=== PATIENT | male | born 2005 | race Caucasian/White ===

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

== ENCOUNTER 2024-10-25 13:42 | Outpatient (REF) | payer OTHER, SELFPAY ==
[2024-10-25 15:36] LABS: MANUAL DIFF FLAG NO
[2024-10-25 15:53] LABS: Basophils Percent Auto 0.9 % (0-2); Eosinophils Absolute Auto 0.2 X10*3/uL (0.0-0.4); Eosinophils Percent Auto 4.7 % (0-4); Hematocrit 43.3 % (42.0-52.0); Hemoglobin 14.7 g/dl (14.0-18.0); Imm Gran Abs Auto 0.01 X10*3/uL (0.00-0.03); Imm Gran Pct Auto 0.2 % (0.0-0.4); Lymphocytes Absolute Auto 1.6 X10*3/uL (1.2-4.9); Lymphocytes Percent Auto 36.7 % (20-40); Mean Corpuscular HGB Conc 33.9 g/dl (31.0-36.0); Mean Corpuscular Hemoglobin 28.8 pg (27.0-33.0); Mean Corpuscular Volume 84.9 fL (80.0-98.0); Mean Platelet Volume 10.3 fL (9.4-12.4); Monocytes Absolute Auto 0.4 X10*3/uL (0.1-1.2); Monocytes Percent Auto 8.1 % (2-11); Neutrophils Absolute Auto 2.2 x10*3/uL (2.0-8.3); Neutrophils Percent Auto 49.4 % (45-73); Platelet Count 210 X10*3/uL (160-400); White Blood Count 4.4 X10*3/uL (4.8-10.8)
[2024-10-25 16:49] LABS: Folate 14.3 ng/mL (> or = 4.0); Vitamin B12 522 pg/mL (200-900)
[2024-10-25 17:13] LABS: Alanine Aminotransferase 22 U/L (0-40); Albumin Level 4.8 g/dL (3.5-5.0); Alkaline Phosphatase 72 U/L (39-117); Anion Gap 12 (12-20); Aspartate Amino Transferase 22 U/L (5-37); Bilirubin Total 0.6 mg/dL (0.0-1.0); Blood Urea Nitrogen 13 mg/dL (9-16); Calcium 9.6 mg/dL (8.4-10.2); Carbon Dioxide 29 mmol/L (22-29); Chloride 106 mmol/L (96-108); Estimated Glomerular Filt Rate > 60; Glucose Random 107 mg/dL (60-115); Potassium 3.8 mmol/L (3.3-5.1); Sodium 143 mmol/L (135-145); Total Protein 7.3 g/dL (6.5-8.0)
[2024-10-25 17:34] LABS: Free T4 (Free Thyroxine) 0.99 ng/dL (0.71-1.85); TSH reflex Free T4 0.95 uIU/mL (0.32-4.0); Vitamin D 25-OH Total 24.2 ng/mL (>30)
== END 2024-10-25 13:43 | disposition home or self-care (01) ==
LOC: HO.LAB 13:42
PROVIDERS: PCP Pediatrics
DX: Z76.89 Persons encountering health services in other specified circumstances (principal); G47.9 Sleep disorder, unspecified; J45.20 Mild intermittent asthma, uncomplicated; R43.0 Anosmia; L81.9 Disorder of pigmentation, unspecified; H61.20 Impacted cerumen, unspecified ear; L65.9 Nonscarring hair loss, unspecified; Z00.00 Encounter for general adult medical examination without abnormal findings
CPT/HCPCS: 36415; 69210; 80053; 82306; 82607; 82746; 84439; 84443; 85025; 86850; 86900; 86901; 96127; 99202

== ENCOUNTER 2024-10-25 13:42 | Outpatient (AMB) | payer OTHER, SELFPAY ==
--- NOTE | 2024-10-25 13:52 | A.OFFPC_ITS ---
Vital Signs 10/25/24 13:55 Height 5 ft 8.11 in Weight 110 lb 2 oz BMI 16.7 BP 110/62 Blood Pressure Location Lt brachial Position Sitting Pulse 90 Pulse Source Pulse Oximeter Temp 97.1 F Temp Source Temporal Artery Scan Pulse Oximetry (%) 97 Oxygen Delivery Method Room Air Intake Visit Reasons: Establish care/CINDI Abby Borja Intake Note: Patient is a new patient here to establish care for Sleep Difficulties, Asthma, Seasonal allergic. Transferring care from [facility] (Abby Borja). Medical records have been requested and have received. Automation Analyst Required: No Administrative Staff Supervisor: Present Accompanied by: Mother Allergies Seasonal Allergies Allergy (Intermediate, Verified 10/25/24 14:01) Nose Bleed Medication List - Last Reconciled 10/25/24 by Shi Honeycutt PA-C albuterol sulfate 90 mcg/actuation 2 puffs inhalation Q4-6H PRN fluticasone propionate 50 mcg/actuation (Children's Flonase Allergy Relief) 1 spray intranasal DAILY 30 days inhalational spacing device (Aerochamber MV spacer) As directed multivitamin 1 tab PO DAILY naproxen 375 mg PO BID 7 days Tobacco use date assessed: 10/25/24 Dental Screening Dental Screen Date: 10/25/24 Did you have a dental visit in the last 12 months?: Yes Did you have a dental problem in the last 6 months where you did not have access to dental care?: No Was dental information given to patient?: Patient has dentist HPI Establish care/CINDI Abby Borja HPI Details 18-year-old male with past medical histo ry of asthma and sleep difficulties last seen 10/2022 coming in for transfer of care from pediatrics. Presenting with persistent ear wax impaction and related symptoms. History of ear wax buildup causing ear clogging and loss of smell with only strong odors like cinnamon detectable since childhood. The anosmia remains unexplained despite previous evaluations including a CT scan. Sleep disturbances since childhood; current sleep habits involve inconsistent sleep patterns with a preference to sleep during the morning. Occasionally experiences red and itchy legs while standing,FHx of erythromelalgia. Asthma manifests during physical exertion; managed with as-needed use of an inhaler. Ongoing concern about hair loss, for which he has not sought specialized attention. [facility] Medical History Anosmia Surgical History History of tonsillectomy H/O adenoidectomy Family History Mother No problems noted. Father No problems noted. Other Chronic mental illness Social History Household Members: Family Both parents involved: Yes Housing: Apartment Housing Other:: rents apartment Patient Tobacco Use Status: Never used Tobacco e-Cigarette/Vaping Use: Never Used Second Hand Smoke Exposure: No service: No Current occupational status: student Cognitive needs: No Hearing needs: No Vision needs: No Questionnaire PHQ-9 Over the last 2 weeks, how often have you been bothered by any of the following problems? 1. Little interest or pleasure in doing things: several days 2. Feeling down, depressed, or hopeless: not at all 3. Trouble falling or staying asleep, or sleeping too much: several days 4. Feeling tired or having little energy: several days 5. Poor appetite or overeating: several days 6. Feeling bad about yourself - or that you are a failure or have let yourself o r your family down: not at all 7. Trouble concentrating on things, such as reading the newspaper or watching television: not at all 8. Moving or speaking so slowly that other people could have noticed. Or the opposite - being so fidgety or restless that you have been moving around a lot more than usual: not at all 9. Thoughts that you would be better off or of hurting yourself in some way: not at all Total score: 4 Depression Screening Interpretation: Negative Depression Screening Done: Yes Source: Developed by Drs. Carlos Julian, Christina Logan, Jose Alejandro Holm and colleagues, with an educational gabriel from [employer]. Thrive Questionnaire Date Thrive assessed: 10/25/24 I am a: Patient What is your living situation today?: I have a steady place to live Within the past 12 months, did the food you bought not last and you didn't have the money to get more?: Never true Within the past 12 months, did you worry whether your food would run out before you got money to buy more?: Never true Do you have trouble paying for medicines?: No Do you have trouble getting transportation to medical appointments?: No Do you have trouble paying your heating and electricity bill?: No Do you have trouble taking care of your child, family member or friend?: No Do you have trouble with day-to-day activities such as bathing, preparing meals, shopping, managing finances, etc.?: No Are you currently unemployed and looking for a job?: Yes Are you interested in more education?: No Please select the resources that you would like help with: Job search/training Currently or been in a relationship where the following occur: No concerns reported THRIVE Score: 0 AUDIT C Alcohol Use Questionnaire (AUDIT-C) 1. How often do you have a drink containing alcohol?: Never Total Score: 0 DONA-7 AMB Questionnaire DONA-7 Date DONA - 7 assessed: 10/25/24 Feeling nervous, anxious, or on edge: 0 = Not at all Not being able to stop or control worryin = Not at all Worrying too much about different things: 0 = Not at all Trouble relaxin = Several days Being so restless that it is hard to sit still: 1 = Several days Becoming easily annoyed or irritable: 1 = Several days Feeling afraid as if something awful might happen: 0 = Not at all Total DONA-7 score (0-4 normal; 5-9 mild; 10-14 moderate; 15-21 severe): 3 Source: Developed by Drs. Carlos Julian, Christina Logan, Jose Alejandro Holm and colleagues, with an educational gabriel from [employer]. DONA-7 Assessment Billing DONA-7 Assessment Tool: DONA-7 Assessment 37799 Review of Systems Const Denies body aches, Denies chills, Denies fever(s), Denies headache(s) and Denies poor appetite Eyes Reports no additional complaints ENT Denies dysphagia, Denies dizziness, Denies headache(s) and Denies odynophagia Card Denies chest pain, Denies syncope, Denies edema, Denies irregular heart rhythm, Denies lightheadedness and Denies dyspnea Resp Denies cough and Denies dyspnea GI Denies abdominal pain, Denies constipation, Denies dysphagia, Denies diarrhea, Denies nausea, Denies odynophagia and Denies vomiting Reports no additional complaints Musc Reports no additional complaints and Denies abnormal gait Skin/Breast Reports system reviewed and no additional complaints, except as documented Neuro Denies abnormal gait, Denies dizziness, Denies syncope and Denies headache(s) Psych Reports no additional complaints Physical exam (Primary Care) Vital Signs: Last Vital Signs Temp 97.1 F 10/25/24 13:55 Pulse 90 10/25/24 13:55 BP 110/62 10/25/24 13:55 Pulse Ox 97 10/25/24 13:55 Oxygen Delivery Method Room Air 10/25/24 13:55 BMI result Body Mass Index 16.7 Tobacco/Smoking Status: Tobacco use Status Tobacco use date assessed 10/25/24 10/25/24 14:01 Patient Tobacco Use Status Never used Tobacco 10/25/24 14:01 e-Cigarette/Vaping Use Never Used 10/25/24 14:01 PHQ-9: PHQ-9 Score PHQ-9: Total score 4 10/25/24 15:47 Depression Screening Interpretation: Negative Thrive Assessment: Date of Thrive Assessment Date Thrive assessed 10/25/24 10/25/24 14:01 Currently or been in a relationship where the following occur: No concerns reported Const General: cooperative, healthy appearing, comfortable and no acute distress Orientation/consciousness: patient oriented x3 HENMT Head: Yes normocephalic Ears: hearing grossly normal bilaterally, TM's normal bilaterally and Abnormal EAC present excessive cerumen bilateral General nose exam: Normal external nose present Eyes General: appearance normal, both eyes and all related structures Conjunctivae: conjunctivae normal Neck Neck: Yes full ROM and Yes no lymphadenopathy Resp Effort & Inspection: normal respiratory effort Auscultation: clear to auscultation bilaterally, no crackles, no rales, no rhonchi and no wheezes Cardio Rate: regular rate Rhythm: regular rhythm Skin General skin exam: no rashes or lesions noted Neuro General: patient oriented x3 Gait exam (Neuro): Normal gait present Extrem Other: No discoloration, swelling or edema bilateral lower extremities. General: Yes normal to inspection, Yes full ROM and No edema Psych Affect: normal affect Attitude: cooperative Insight: Good insight present (Psych) Judgement: Good judgement present (Psych) Office Procedures Cerumen Removal From which ear canal was the cerumen removed: bilateral Removal: cerumen loop/spoon Notes: patient tolerated procedure well and no complications [id number] Wax Removal by Spoon/Curette Coding Level of Care Code New Pt Level 4 (16971) Diagnoses Sleep difficulties G47.9 Mild intermittent asthma J45.20 Anosmia R43.0 Discoloration of skin of lower leg L81.9 Cerumen impaction H61.20 Hair loss L65.9 CPT Codes Office Procedure - CPT: 80313-Zdj Wax Removal by Spoon/Curette ([id number]) Additional Codes DONA-7 Assessment Billing - DONA-7 Assessment Tool: DONA-7 Assessment 80407 ([id number]) Assessment & Plan Assessment & Plan (1) Sleep difficulties: Code(s): G47.9 - Sleep disorder, unspecified Category: Medical Plan: Patient declining medical management at this time. I did recommend patient use magnesium or melatonin [id number] for insomnia. (2) Mild intermittent asthma: Code(s): J45.20 - Mild intermittent asthma, uncomplicated Category: Medical Plan: Asthma currently controlled on present medications. Continue on albuterol as needed. Avoid triggers such as allergies. (3) Anosmia: Code(s): R43.0 - Anosmia Category: Medical Plan: Patient has had extensive workup with ENT with no cause found. Advised patient to continue to follow with ENT. (4) Discoloration of skin of lower leg: Code(s): L81.9 - Disorder of pigmentation, unspecified Category: Medical Plan: Patient complaining of discoloration of lower legs on exam there is no evidence of discoloration, swelling or rash. Recommend patient take pictures next time this occurs (5) Cerumen impaction: Code(s): H61.20 - Impacted cerumen, unspecified ear Category: Medical Plan: Patient having bilateral cerumen impaction successfully removed with lighted curette. Mild wax does remain advised patient to use Debrox drops [id number] and follow up at next visit. (6) Hair loss: Code(s): L65.9 - Nonscarring hair loss, unspecified Category: Medical Plan: Referral was placed to Dermatology today. No visualized bald spots. Plan To address the persistent ear wax impaction, I will prescribe wldw-cii-xelcoie ear drops with an oil component to soften wax, recommending application prior to the upcoming follow-up. Anosmia remains without a detected cause through previous testing; continued monitoring is suggested, with a potential future referral to a specialist. For sleep disturbances, we discussed maintaining regular sleep hygiene with the possible use of magnesium or melatonin to regulate sleep patterns if necessary. With symptoms of depression, further intervention will be considered if his condition affects daily functioning, though psychological support could be beneficial. The unexplained red coloration and itching in the legs have led to a planned blood work and suggesting photographic evidence capture for differential diagnosis of erythromelalgia versus other systemic issues. Asthma management will continue with as-needed inhaler usage prior to exertion, and we encourage reinstating Flonase for allergy management concurrent with his symptoms. Further dermatological assessment is indicated for hair loss; subsequent blood analysis and referrals will be reviewed during his next appointment. This note was constructed using voice recognition software. While every effort has been made to ensure accuracy and president and ceo, still areas may have been included sometimes these areas may affect the content or meeting of the given symptoms. Total time spent caring for the patient today was 30 minutes. This includes time spent before the visit reviewing the chart, time spent during the visit, and time spent after the visit and documentation. Patient was informed and verbally consented to the use of an ambient scribe for clinic note documentation during this visit. Orders: Orders TSH reflex Free T4 Today G47.9 - Sleep disorder, unspecified, Z00.00 - Encounter for general adult medical examination without abnormal findings Free T4 (Free Thyroxine) Today G47.9 - Sleep disorder, unspecified, Z00.00 - Encounter for general adult medical examination without abnormal findings Vitamin B12 and Folate Today G47.9 - Sleep disorder, unspecified, Z13.21 - Encounter for screening for nutritional disorder Vitamin D 25-OH Total Today G47.9 - Sleep disorder, unspecified, Z00.00 - Encounter for general adult medical examination without abnormal findings Complete Blood Count Auto Diff Today R43.0 - Anosmia, Z00.00 - Encounter for general adult medical examination without abnormal findings Comprehensive Met. Panel Today R43.0 - Anosmia, Z00.00 - Encounter for general adult medical examination without abnormal findings Type and Screen Today H61.20 - Impacted cerumen, unspecified ear, Z00.00 - Encounter for general adult medical examination without abnormal findings Referrals Dermatology Referral L65.9 - Nonscarring hair loss, unspecified Medications: New fluticasone propionate 50 mcg/actuation (Flonase Allergy Relief) administer into each nostril 1 spray intranasal DAILY 16 grams 0RF carbamide peroxide 6.5% (Debrox) 5 drps otic (ears) DAILY 4 days 15 mL 0RF Refilled multivitamin 1 tab PO DAILY 90 tabs 3RF albuterol sulfate 90 mcg/actuation 2 puffs inhalation Q4-6H PRN 1 ea 0RF shortness of breath or wheezing Discontinued fluticasone propionate 50 mcg/actuation (Children's Flonase Allergy Relief) administer into each nostril Discontinued Reason: Patient no longer taking 1 spray intranasal DAILY 30 days 15.8 mL 2RF J30.9 - Allergic rhinitis, unspecified naproxen after 7 days of taking bid can continue q12 hrs PRN Discontinued Reason: Patient no longer taking 375 mg PO BID 7 days 30 tabs 0RF
--- OUTSIDE RECORDS SUMMARY | 2024-10-25 13:52 | XMS_ITS | Clinical Summary ---
Author Organization Repair Report Address [address] [facility] [address] [place] [address] Care Team Providers Care Environmental Health Aide Name Role Phone Unavailable Primary Care Provider Unavailabl e Allergies No known active allergies Medications Sodium Fluoride 1.1 % creamIndication s:Dental caries [place] with a pea size amount of toothpaste morning and bedtime. Floss between teeth. Do not rinse. Spit out excess. 56 g 10 3 Active Additional Information Patient not taking.Reported on 10/04/2024 Multiple Vitamin (Daily-Shayna Multivitamin) tablet Take 1 tablet by mouth in the morning. 3 Active Multiple Vitamin (Daily-Shayna) tablet Take 1 tablet by mouth in the morning. 2 Active albuterol 108 (90 Base) MCG/ACT inhaler INHALE 2 PUFF INHALED EVERY 4 TO 6 HOURS NEEDED FOR SHORTNESS OF BREATH OR WHEEZING 2 Active Active Problems Problem Noted Date Diagnosed Date Inadequate occlusion of dental buddhism 03/21 Incipient enamel dental caries 12/25/2023 Tooth, impacted 12/25/2023 Deviated septum 05/24/2022 Abnormal smell 05/18/2022 Nasal congestion 05/18/2022 Insomnia 01/22/2013 Periodic limb movement disorder 01/22/2013 Restless legs 01/22/2013 Asthma 06/22/2012 Encounters Date Type Department Care Team Description 10/04/2024 3:00 PM EDT Office Visit [facility] [address] [place] [address] Johnson Cleary DDS 09/18/2024 2:00 PM EDT Office Visit [facility] [address] [place] [address] Adithya Stahl DMD Tooth, impacted (Primary Dx) 08/20/2024 10:30 AM EDT Office Visit [facility] [address] [place] [address] Johnson Cleary DDS from Last 3 Months Social History Tobacco Use Types Packs/Day Years Used Date Smoking Tobacco: Never Passive Smoke Exposure: Never Smokeless Tobacco: Never Tobacco Cessation:Counseling Given: No Alcohol Use Standard Drinks/Week Comments Never 0 (1 standard drink = 0.6 oz pur e alcohol) Sex and Gender Information Value Date Recorded Sex Assigned at Male 03/28/2022 10:20 AM EDT Legal Sex Male 10:20 AM EDT Gender Identity Male 03/28/2022 10:20 AM EDT Sexual Orientation Straight 03/28/2022 10 :20 AM EDT Last Filed Vital Signs Vital Sign Reading Time Taken Comments Blood Pressure 104/60 10/04/2024 3:06 PM EDT Pulse 96 10/04/2024 3:06 PM EDT Temperature - - Respiratory Rate - - Oxygen Saturation - - Inhaled Oxygen Concentration - - Weight 52 kg (114 lb 9.6 oz) 01/23/2023 11:00 AM EDT Height 172.7 cm (5' 8 ) 01/23/2023 11:00 AM EDT Body Mass Index 17.42 01/23/2023 11:00 AM EDT Body Mass Index Percentile 1.42% 01/23/2023 11: 00 AM EDT Growth Chart: CDC (Boys, 2-2 0 Years) Plan of Treatment Upcoming Encounters Date Type Department Care Team (Late st Contact Info) Description 12/18/2024 9:30 AM EDT Office Visit [facility] [address] [place] [address] Adithya Stahl, DMD [address] [place] [address] 01/01/2025 1:00 PM EDT Office Visit [facility] [address] [place] [address] Aris Rinaldiaris [address] [place] [address] Health Maintenance Due Date Last Done Comments Chlamydia and Gonorrhea Screening 2004 Depression Screening 2004 HIV Screening 2004 SDOH Screening 2004 Disability Screening 2004 Alcohol/Substance Use Screening 2016 Family Planning (PISQ) 12/01/2019 Meningococcal B Vaccine (1 of 2 - Standard) 2020 Hepatitis C Screening 2022 Pneumococcal Vaccine: Pediatrics (0 to 5 Years) and At-Risk Patients (6 to 49) Years) (1 of 2 - PCV) 12/01/2023 03/15/2006, 06/15/2005, 04/11/2005, Additional history exists COVID-19 Vaccine (1 - 2023- season) 2024 Influenza Vaccine (#1) 2024 6, 03/03/2015, 03/14/2014, Additional history exists Dental Oral Exam 06/27/2024 12/25/2023, 07/25/2022 Fluoride Varnish 12/29/2024 07/01/2024, , 01/23/2023, Additional history exists Dental Prophylaxis 12/30/2024 07/01/2024, 0 12/25/2023, 01/23/2023, Additional history exists Dental X-Ray: Bitewings 08/21/2025 08/21/19, 12/25/2023, 07/25/2022 Tobacco Screening 10/04/2025 10/04/2024 DTaP/Tdap/Td Vaccines (7 - Td or Tdap) 07/05/2026 07/05/2016, 12/10/2008, 03/15/2006, Additional history exists Dental X-Ray: Full Mouth 08/22/2027 08/20/2024 Zoster Vaccines (1 of 2) 2054 RSV Patients and Patients Aged 60 years or older (1 - 1-dose 75+ series) 12/01/2079 Hepatitis B Vaccines Completed 06/15/2005, 04/11/2005, 02/07/2005 HIB Vaccines Completed 03/15/2006, 03/30, 02/07/2005 Hepatitis A Vaccines Completed 06/19/2006, 12/14/19 IPV Vaccines Completed 12/10/2008, 05/29, 04/11/2005, Additional history exists MMR Vaccines Completed 12/10/2008, 12/13/2005 Varicella Vaccines Completed 01/12/2009, 12/13/2005 HPV Vaccines Completed 08/28/2018, 0409/2015, 07/02/2015 Meningococcal Vaccine Completed 03/31/2022, 017 RSV under 20 months Aged Out No longe r eligible based on patient's age to complete this topic Rotavirus Vaccines Aged Out No longer eligible based on patient's age to complete this topic Procedures Procedure Name Priority Date/Time Associated Diagnosis Comments CASE PRESENTATION, DETAILED AND EXTENSIVE TREATMENT PLANNING Routine 10/04/2024 3:00 PM EDT 3 DO RESIN-BASED COMPOSITE - 2 SURF, POSTERIOR Routine 10/04/2024 3:00 PM EDT CONSULTATION - DIAGNOSTIC SERVICE PROVIDED BY DENTIST OR PHYSICIAN OTHER THAN REQUESTING DENTIST OR PHYSICIAN Routine 09/18/2024 2:00 PM EDT BITEWINGS - 2 RADIOGRAPHIC IMAGES Routine 08/20/2024 10:30 AM EDT PANORAMIC RADIOGRAPHIC IMAGE Routine 08/20/2024 10:30 AM EDT LIMITED ORAL EVALUATION - PROBLEM FOCUSED Routine 08/20/2024 10:30 AM EDT CASE PRESENTATION, DETAILED AND EXTENSIVE TREATMENT PLANNING Routine 08/20/2024 10:30 AM EDT 2 MO RESIN-BASED COMPOSITE - 2 SURF, POSTERIOR Routine 08/20/2024 10:30 AM EDT PROPHYLAXIS - ADULT Routine 07/01/2024 2 :00 PM EST Dental plaque TOPICAL APPLICATION OF FLUORIDE VARNISH Routine 07/01/2024 2:00 PM EST Dental plaque PERIODIC ORAL EVALUATION - ESTABLISHED PATIENT Routine 12/25/2023 1:00 PM EDT from Last 3 Months or Most Recently Relevant to Health Maintenance Insurance [facility] MEDICAID STAND CHILD
[2024-10-25 13:55] VITALS: BP 110/62; PULSE 90; TEMP 36.2; O2SAT 97; BMI 16.7
== END 2024-10-25 14:38 | disposition home or self-care (01) ==
DX: G47.9 Sleep disorder, unspecified (principal); J45.20 Mild intermittent asthma, uncomplicated; R43.0 Anosmia; H61.23 Impacted cerumen, bilateral; L81.9 Disorder of pigmentation, unspecified; L65.9 Nonscarring hair loss, unspecified

== ENCOUNTER 2024-12-10 15:54 | Outpatient (AMB) | payer OTHER, SELFPAY ==
--- NOTE | 2024-12-10 16:03 | MHC.PC.OV ---
Vital Signs 12/10/24 16:05 Height 5 ft 8.11 in BP 112/76 Blood Pressure Location Lt brachial Position Sitting Intake Visit Reasons: Annual PE Electronic Coils Supervisor Required: No Accompanied by: Mother Allergies Seasonal Allergies Allergy (Intermediate, Verified 12/10/24 16:49) Nose Bleed Medication List - Last Reconciled 12/10/24 by Shi Honeycutt PA-C albuterol sulfate 90 mcg/actuation 2 puffs inhalation Q4-6H PRN carbamide peroxide 6.5% (Debrox) 5 drps otic (ears) DAILY 4 days fluticasone propionate 50 mcg/actuation (Flonase Allergy Relief) 1 spray intranasal DAILY inhalational spacing device (Aerochamber MV spacer) As directed multivitamin 1 tab PO DAILY Tobacco use date assessed: 12/10/24 Dental Screening Dental Screen Date: 12/10/24 Did you have a dental visit in the last 12 months?: Yes Did you have a dental problem in the last 6 months where you did not have access to dental care?: No Was dental information given to patient?: Patient has dentist HPI Annual PE HPI Details Presenting with an annual wellness examination. Episodes of lightheadedness and dizziness occur during blood draws, managed by lying down and deep breathing. Recurrent lip lesions suggestive of cold sores, with a blood test planned for confirmation. No other acute concerns today Shortness of breath and heart pain during exertion, managed with albuterol inhaler as needed. [facility] Medical History Anosmia Surgical History History of tonsillectomy H/O adenoidectomy Family History Mother No problems noted. Father No problems noted. Other Chronic mental illness Social History Household Members: Family Both parents involved: Yes Housing: Apartment Housing Other:: rents apartment Patient Tobacco Use Status: Never used Tobacco e-Cigarette/Vaping Use: Never Used Second Hand Smoke Exposure: No service: No Current occupational status: student Cognitive needs: No Hearing needs: No Vision needs: No Questionnaire Thrive Questionnaire Date Thrive assessed: 12/10/24 I am a: Patient What is your living situation today?: I have a steady place to live Within the past 12 months, did the food you bought not last and you didn't have the money to get more?: Never true Within the past 12 months, did you worry whether your food would run out before you got money to buy more?: Never true Do you have trouble paying for medicines?: No Do you have trouble getting transportation to medical appointments?: No Do you have trouble paying your heating and electricity bill?: No Do you have trouble taking care of your child, family member or friend?: No Do you have trouble with day-to-day activities such as bathing, preparing meals, shopping, managing finances, etc.?: No Are you currently unemployed and looking for a job?: Yes Are you interested in more education?: No Please select the resources that you would like help with: Job search/training Currently or been in a relationship where the following occur: No concerns reported THRIVE Score: 0 DONA-7 AMB Questionnaire DONA-7 Date DONA - 7 assessed: 12/10/24 Source: Developed by Drs. Carlos Julian, Christina Logan, Jose Alejandro Holm and colleagues, with an educational gabriel from [employer]. Review of Systems Const Denies body aches, Denies chills, Denies fever(s), Denies headache(s) and Denies poor appetite Eyes Reports no additional complaints ENT Denies dysphagia, Denies dizziness, Denies headache(s) and Denies odynophagia Card Denies chest pain, Denies syncope, Denies edema, Denies irregular heart rhythm, Denies lightheadedness and Denies dyspnea Resp Denies cough and Denies dyspnea GI Denies abdominal pain, Denies constipation, Denies dysphagia, Denies diarrhea, Denies nausea, Denies odynophagia and Denies vomiting Reports no additional complaints Musc Reports no additional complaints and Denies abnormal gait Skin/Breast Reports system reviewed and no additional complaints, except as documented Neuro Denies abnormal gait, Denies dizziness, Denies syncope and Denies headache(s) Psych Reports no additional complaints Physical exam (Primary Care) Vital Signs: Last Vital Signs BP 112/76 12/10/24 16:05 Tobacco/Smoking Status: Tobacco use Status Tobacco use date assessed 12/10/24 12/10/24 16:08 Patient Tobacco Use Status Never used Tobacco 12/10/24 16:08 e-Cigarette/Vaping Use Never Used 12/10/24 16:08 Thrive Assessment: Date of Thrive Assessment Date Thrive assessed 12/10/24 12/10/24 16:08 Currently or been in a relationship where the following occur: No concerns reported Const General: cooperative, healthy appearing, comfortable and no acute distress Orientation/consciousness: patient oriented x3 HENMT Head: Yes normocephalic Ears: hearing grossly normal bilaterally, external ears normal, TM's normal bilaterally and Abnormal EAC present cerumen impaction bilateral General nose exam: Normal external nose present Face and sinus: Yes normal facial exam and Yes sinuses nontender Mouth: Normal oral and palatal mucosa present and tongue normal Throat: Yes posterior oropharynx normal Eyes General: appearance normal, both eyes and all related structures Conjunctivae: conjunctivae normal Pupils: Equal, round and reactive pupils present EOM: EOMs intact bilaterally and No Nystagmus present Neck Neck: Yes normal visual inspection, Yes full ROM and Yes no lymphadenopathy Chest Chest palpation & inspection: normal inspection of the chest Resp Effort & Inspection: normal respiratory effort Auscultation: clear to auscultation bilaterally, no crackles, no rales, no rhonchi, no wheezes and breath sounds present Cardio Rate: regular rate Rhythm: regular rhythm Peripheral pulses: radial pulses present and dorsalis pedis present GI Inspection: Yes normal to inspection and No Abdominal wall edema Palpation (GI): Soft to palpation, not firm and nontender Auscultation: normal bowel sounds Rectal Exam - Male: Yes deferred General: Yes no CVA tenderness Back/Spine/Pelvis Back: no CVA tenderness Skin General skin exam: no rashes or lesions noted Neuro General: patient oriented x3 Cranial nerves: Yes Equal, round and reactive pupils present, Yes Midline tongue present, Yes Ability to bilaterally elevate shoulders present and No Nystagmus present Gait exam (Neuro): Normal gait present Extrem General: Yes normal to inspection, Yes full ROM, No no pedal edema and No edema Psych Speech and movement: Normal speech and movement present Affect: normal affect Insight: Good insight present (Psych) Judgement: Good judgement present (Psych) Office Procedures Cerumen Removal From which ear canal was the cerumen removed: bilateral Removal: irrigation and cerumen loop/spoon Notes: patient tolerated procedure well, no complications and ear canal clear [id number] Irrigation/Lavage Coding Level of Care Code Est Pt Prev Care 18-39y([id number]) Diagnoses Annual physical exam Z00.00 Sleep difficulties G47.9 Mild intermittent asthma J45.20 Anosmia R43.0 Discoloration of skin of lower leg L81.9 Hair loss L65.9 Cerumen impaction H61.20 Lip lesion K13.0 CPT Codes Office Procedure - CPT: 61717-Xph Irrigation/Lavage ([id number]) Assessment & Plan Assessment & Plan (1) Annual physical exam: Code(s): Z00.00 - Encounter for general adult medical examination without abnormal findings Category: Medical Plan: Patient is up-to-date on all recommended routine screenings and vaccinations for his age. Blood work is up-to-date and has been reviewed with the patient at this visit. Healthy diet and regular exercise is encouraged. Follow up in 1 year sooner as needed (2) Sleep difficulties: Code(s): G47.9 - Sleep disorder, unspecified Category: Medical Plan: Patient declining medical management at this time. I did recommend patient use magnesium or melatonin [id number] for insomnia. (3) Mild intermittent asthma: Code(s): J45.20 - Mild intermittent asthma, uncomplicated Category: Medical Plan: Asthma currently controlled on present medications. Continue on albuterol as needed. Avoid triggers such as allergies. (4) Anosmia: Code(s): R43.0 - Anosmia Category: Medical Plan: Patient has had extensive workup with ENT with no cause found. Referral was placed to ENT. (5) Discoloration of skin of lower leg: Code(s): L81.9 - Disorder of pigmentation, unspecified Category: Medical Plan: Patient complaining of discoloration of lower legs on exam there is no evidence of discoloration, swelling or rash. Recommend patient take pictures next time this occurs (6) Hair loss: Code(s): L65.9 - Nonscarring hair loss, unspecified Category: Medical Plan: Referral was placed to Dermatology at last visit. No visualized bald spots. (7) Cerumen impaction: Code(s): H61.20 - Impacted cerumen, unspecified ear Category: Medical Plan: Cerumen was successfully removed using combination of lighted curette and irrigation. Patient tolerated the procedure well and TMs were visualized as intact with well aerated middle ear spaces without perforation or retraction. Follow up as needed for this concern (8) Lip lesion: Code(s): K13.0 - Diseases of lips Category: Medical Plan: Patient reporting occasional lip lesion that will appear when he is sick or stressed. He has had this lesion since he was a child and has never been treated for it and has not been diagnosed. There is no lesion present at this time. Patient is encouraged to either be evaluated in the office when this appears or take a photo of the lesion. Plan to obtain HSV testing as well. Plan This note was constructed using voice recognition software. While every effort has been made to ensure accuracy and making line worker, still areas may have been included sometimes these areas may affect the content or meeting of the given symptoms. Total time spent caring for the patient today was 30 minutes. This includes time spent before the visit reviewing the chart, time spent during the visit, and time spent after the visit and documentation. Patient was informed and verbally consented to the use of an ambient scribe for clinic note documentation during this visit. Orders: Orders Herpes Simplex Virus Ab IgG 12/10/24 K13.0 - Diseases of lips Referrals Dermatology Referral K13.0 - Diseases of lips, L65.9 - Nonscarring hair loss, unspecified Ear/Nose/Throat Referral R43.0 - Anosmia Medications: New cholecalciferol (vitamin D3) 25 mcg PO DAILY 90 caps 3RF
[2024-12-10 16:05] VITALS: BP 112/76
--- OUTSIDE RECORDS SUMMARY | 2024-12-10 16:39 | XMS_ITS | Clinical Summary ---
Author Organization [facility] Address [address] [facility] [address] [place] [address] Care Team Providers Care Partition Notcher Name Role Phone Unavailable Primary Care Provider Unavailabl e Allergies No known active allergies Medications Sodium Fluoride 1.1 % creamIndication s:Dental caries [place] with a pea size amount of toothpaste [...] Date Diagnosed Date Inadequate occlusion of dental roman catholic 03/21 Incipient enamel dental caries 12/25/2023 Tooth, impacted 12/25/2023 Deviated septum 05/24/2022 Abnormal smell 05/18/2022 Nasal congestion 05/18/2022 Insomnia 01/22/2013 Periodic limb movement disorder 01/22/2013 Restless legs 01/22/2013 Asthma 06/22/2012 Encounters Date Type Department Care Team Description 10/04/2024 3:00 PM EDT Office Visit [facility] [address] [place] [address] Johnson Cleary DDS 09/18/2024 2:00 PM EDT Office Visit [facility] [address] [place], [place] [id number] Adithya Stahl DMD Tooth, impacted (Primary Dx) from Last 3 Months Social History Tobacco [...] Mass Index 17.42 01/23/2023 11:00 AM EDT Plan of Treatment Upcoming Encounters Date Type Department Care Team (Late st Contact Info) Description 12/18/2024 9:30 AM EDT Office Visit [facility] [address] [place] [address] Adithya Stahl, JL [address] [place] [address] 01/01/2025 1:00 PM EDT Office Visit [facility] [address] [place] [address] [employer] [place] [address] [place] [address] Health Maintenance Due Date Last Done Comments Chlamydia and Gonorrhea Screening 2004 Depression Screening 2004 HIV Screening 2004 SDOH Screening 2004 Disability Screening 2004 Alcohol/Substance Use Screening 2016 Family Planning (PISQ) 12/01/2019 Meningococcal B Vaccine (1 of 2 - Standard) 2020 Hepatitis C Screening 2022 Pneumococcal Vaccine: Pediatrics (0 to 5 Years) and At-Risk Patients (6 to 49) Years (1 of 2 - PCV) 12/01/2023 03/15/2006, 06/15/2005, 04/11/2005, Additional history exists COVID-19 Vaccine (1 - season) 2024 Dental Oral Exam 06/27/2024 12/25/2023, 07/25/2022 Dental Prophylaxis 12/30/2024 07/01/2024, 0 12/25/2023, 01/23/2023, Additional history exists Influenza Vaccine (#1) 2025 6, 03/03/2015, 03/14/2014, Additional history exists Dental X-Ray: Bitewings 08/21/2025 08/21/19 25, 12/25/2023, 07/25/2022 Tobacco Screening 10/04/2025 10/04/2024 DTaP/Tdap/Td [...] 02/07/2005 Hepatitis A Vaccines Completed 06/19/2006, 12/14/19 06 IPV Vaccines Completed 12/10/2008, 05/29, 04/11/2005, Additional history exists HPV Vaccines Completed 08/28/2018, 0409/2015, 07/02/2015 Meningococcal [...] OR PHYSICIAN Routine 09/18/2024 2:00 PM EDT PANORAMIC RADIOGRAPHIC IMAGE Routine 08/20/2024 10:30 AM EDT BITEWINGS - 2 RADIOGRAPHIC IMAGES Routine 08/20/2024 10:30 AM EDT PROPHYLAXIS - ADULT Routine 07/01/2024 2 :00 PM EST Dental plaque PERIODIC ORAL EVALUATION - ESTABLISHED PATIENT Routine 12/25/2023 1:00 PM EDT from Last 3 Months or Most Recently Relevant to Health Maintenance Insurance [place]
--- OUTSIDE RECORDS SUMMARY | 2024-12-10 16:39 | XMS_ITS ---
Author Name [facility] Organization Unknown History of Medication Use Medication Directions Dispensed Refills Start Date End Date Stat cyproheptadine (PERIACTIN) 4 mg tablet TAKE 1 TABLET ORALLY AT BEDTIME 03/31/2022 active DAILY-MAVERICK, WITH FOLIC ACID, 400 mcg Tablet Take 1 tablet by mouth daily 03/31/2022 active DAILY-MAVERICK, WITH FOLIC ACID, 400 mcg Tablet Take 1 tablet by mouth daily 03/31/2022 active [facility] Spacer DIRECTED 03/31/2022 active OPTICHAMBER [facility] C Spacer DIRECTED 03/31/2022 active Problems Problem Status Onset Date Problem Type Date of Resoluti on Source Nasal congestion active 2022-05-18 [facility]Act [facility] Deviated septum active 2022-05-[address] [facility] Abnormal smell active 2022-05-[address] [place]_ [facility] Encounters Encounter Type Encounter Reason Primary Diagnosis Location Date Ambulatory [facility] 06/01/2022 Care Team Organization Name Specialty Phone Email Start Date End Da te [facility] 06/03/2022
== END 2024-12-10 17:21 | disposition home or self-care (01) ==
LOC: HO.HMCH 15:55
DX: Z00.00 Encounter for general adult medical examination without abnormal findings (principal); G47.9 Sleep disorder, unspecified; J45.20 Mild intermittent asthma, uncomplicated; R43.0 Anosmia; L81.9 Disorder of pigmentation, unspecified; L65.9 Nonscarring hair loss, unspecified; H61.23 Impacted cerumen, bilateral; K13.0 Diseases of lips

== ENCOUNTER → 2024-12-10 15:54 | Outpatient (BNVA) | payer OTHER, SELFPAY | DX: Z00.00 Encounter for general adult medical examination without abnormal findings (principal); H61.23 Impacted cerumen, bilateral; R42 Dizziness and giddiness; J45.20 Mild intermittent asthma, uncomplicated; R43.0 Anosmia; L81.9 Disorder of pigmentation, unspecified; L65.9 Nonscarring hair loss, unspecified; K13.0 Diseases of lips | CPT/HCPCS: 69210; 99395 ==